=== PATIENT | female | born 1965 | race African-American/Black ===

== ENCOUNTER 2023-01-12 05:16 | Day surgery (SDC) | payer OTHER ==
[2023-01-12] MEDS ORDERED: MIDAZOLAM HCL 2 MG/2 ML SINGLE DOSE VIAL ONE (15:44)
[2023-01-12] MEDS ORDERED: FENTANYL CITRATE/PF 50 MCG/ML VIAL ONE ×2 (15:44→16:30)
[2023-01-12 17:23] VITALS: RESP 18
[2023-01-12 17:53] VITALS: BP 140/87; PULSE 104; TEMP 97.5
== END 2023-01-12 18:25 | disposition home or self-care (01) ==
LOC: JASU-SURG 05:16
PROVIDERS: ATTEND Urology
PROC: 0TF6XZZ Fragmentation in Right Ureter, External Approach (ICD-10-PCS; principal; 2023-01-12 14:30)
DX: N20.1 Calculus of ureter (principal)

== ENCOUNTER 2023-06-01 04:22 | Day surgery (SDC) | payer OTHER ==
[2023-05-27 13:26] VITALS: BMI 37.0
[2023-06-01 11:10] VITALS: RESP 18
[2023-06-01] MEDS ORDERED: MIDAZOLAM HCL 2 MG/2 ML SINGLE DOSE VIAL ONE (14:02)
[2023-06-01] MEDS ORDERED: ONDANSETRON 4 MG/2 ML VIAL ONE (14:28)
[2023-06-01] MEDS ORDERED: PROPOFOL 20 ML ONE (14:32)
[2023-06-01] MEDS ORDERED: KETOROLAC TROMETHAMINE 30 MG/1 ML VIAL ONE (14:42)
[2023-06-01 17:03] VITALS: BP 139/89; PULSE 88; TEMP 97.8
== END 2023-06-01 16:40 | disposition home or self-care (01) ==
LOC: JASU-SURG 04:22
PROVIDERS: ATTEND Urology
PROC: 0TF4XZZ Fragmentation in Left Kidney Pelvis, External Approach (ICD-10-PCS; principal; 2023-06-01 13:00)
DX: N20.0 Calculus of kidney (principal)

== ENCOUNTER 2023-10-05 04:50 | Day surgery (SDC) | payer OTHER ==
[2023-09-28 12:55] VITALS: BMI 38.7
[2023-10-05 10:33] VITALS: BP 115/72; PULSE 79; RESP 18; TEMP 97.7
== END 2023-10-05 12:38 | disposition home or self-care (01) ==
LOC: JASU-SURG 04:50
PROVIDERS: ATTEND Urology
DX: Z53.8 Procedure and treatment not carried out for other reasons (principal)

== ENCOUNTER 2023-10-19 05:11 | Day surgery (SDC) | payer OTHER ==
[2023-10-16 11:44] VITALS: BMI 39.9
[2023-10-19] MEDS ORDERED: MIDAZOLAM HCL 2 MG/2 ML SINGLE DOSE VIAL ONE ×2 (08:31→08:36)
[2023-10-19 11:26] VITALS: BP 118/58; PULSE 82; RESP 18; TEMP 97.8
== END 2023-10-19 11:27 | disposition home or self-care (01) ==
LOC: JASU-SURG 05:11
PROVIDERS: ATTEND Urology
PROC: 0TF3XZZ Fragmentation in Right Kidney Pelvis, External Approach (ICD-10-PCS; principal; 2023-10-19 08:31)
DX: N20.0 Calculus of kidney (principal)